=== PATIENT | female | born 1965 | race Caucasian/White ===

== ENCOUNTER 2017-08-16 18:45 | Emergency (ER) | payer OTHER ==
[~2017-08-16] VITALS: Ht 154.9 cm; Wt 68.0 kg
--- NOTE | 2017-08-16 19:49 | ED GENERAL ADULT ---
History of Present Illness General Chief Complaint: General Adult Stated Complaint: SIB WALK IN TACHYCARDIA 130'S Source: patient Exam Limitations: no limitations Vital Signs & Intake/Output Vital Signs & Intake/Output Vital Signs Date Time Temp Pulse Resp B/P B/P Pulse O2 O2 Flow FiO2 Mean Ox Delivery Rate 08/16 2315 98.5 94 18 144/88 98 Room Air Room Air 08/16 2037 108 08/16 1855 98.6 136 18 145/85 98 Room Air ED Intake and Output 08/17 0000 08/16 1200 Intake Total 2000 Output Total Balance 2000 Intake, IV 2000 Patient 150 lb Weight Weight Reported by Patient Measurement Method Allergies Coded Allergies: No Known Allergies (08/16/17) Reconcile Medications Albuterol Sulfate (Proair Hfa) 90 MCG HFA.AER.AD 2 PUF INH Q4-6 PRN PRN SOB COUGH Azithromycin (Zithromax) 250 MG TABLET 1 DP PO AD BRONCHITIS 2 the first day followed by 1 for days 2-5 Codeine Phosphate/Guaifenesi (Cheratussin AC Syrup) 10 MG-100 MG/5 ML LIQUID 10 ML PO Q6H PRN COUGH Triage Note: 51 YO FEMALE TO TRIAGE FROM URGENT CARE FOR EVAL OF ELEVATED HR. STATES SHE WENT THERE FOR EVAL OF PRODUCTIVE COUGH WITH BROWNISH SPUTUM. STATES THEY DID AN EKG AND HER HR WAS 130s. STATES HAS BEEN TAKING TUSSIN DM FOR HER COUGH. DENIES CHEST PAIN/SOB. EKG IN PROGRESS. Triage Nurses Notes Reviewed? yes Onset: Abrupt Duration: day(s): (3), changing over time, continues in ED, getting worse Timing: remote history Injury Environment: home Severity: mild, moderate No Modifying Factors: none Associated Symptoms: cough LMP (ages 10-50): unknown : No Patient currently breastfeeds: No HPI: 51-year-old female with no medical history presents for evaluation of cough, shortness breath and chest tightness. Patient reports symptoms have been going on for 3 days. She reports a history of bronchitis in the past FEELS this is similar. She states that her cough is productive of clear sputum. She also reports chest tightness in the center of her chest. She went to an urgent care and was sent here for further evaluation as her heart rate was elevated. She reports that she is a current every day smoker she smoked 2 cigarettes took cough medicine and drink a large, coughing for going to the urgent care. She also reports increasing anxiety and thinks this may be why her heart rate is elevated. She denies any chest pain hemoptysis lower extremity edema history of DVT/PE, fevers, nausea, vomiting, sweats, chills, abdominal pain or any other associated symptoms. (César Dsouza) Past History Travel History Traveled to [place] past 21 day No Medical History Any Pertinent Medical History? see below for history Neurological: NONE EENT: NONE Cardiovascular: NONE Respiratory: NONE Gastrointestinal: NONE Hepatic: NONE Renal: NONE Musculoskeletal: NONE Psychiatric: NONE Endocrine: NONE Blood Disorders: NONE Cancer(s): NONE ZIGZAG APPLIQUER/Reproductive: NONE Surgical History Surgical History: non-contributory Psychosocial History What is your primary language Yoruba Tobacco Use: Current Daily Use Daily Tobacco Use Amount/Type: => 5 Cigarettes daily Family History Hx Contributory? No (César Dsouza) Review of Systems Review of Systems Constitutional: Reports: no symptoms. EENTM: Reports: no symptoms. Respiratory: Reports: see HPI, cough, short of breath. Cardiovascular: Reports: see HPI (CHEST TIGHTNESS). GI: Reports: no symptoms. Genitourinary: Reports: no symptoms. Musculoskeletal: Reports: no symptoms. Skin: Reports: no symptoms. Neurological/Psychological: Reports: no symptoms. Hematologic/Endocrine: Reports: no symptoms. Immunologic/Allergic: Reports: no symptoms. All Other Systems: Reviewed and Negative (César Dsouza) Physical Exam Physical Exam General Appearance: well developed/nourished, no apparent distress, alert, awake Head: atraumatic, normal appearance Eyes: Bilateral: normal appearance, PERRL, EOMI. Ears, Nose, Throat: normal pharynx, normal ENT inspection, hearing grossly normal Neck: normal inspection, supple, full range of motion Respiratory: normal breath sounds, chest non-tender, no respiratory distress, lungs clear Cardiovascular: regular rate/rhythm, normal peripheral pulses Peripheral Pulses: 2+ radial (R), 2+ radial (L) Gastrointestinal: normal bowel sounds, soft, non-tender, no organomegaly Back: normal inspection, normal range of motion Extremities: normal inspection, normal range of motion, no edema Neurologic/Psych: no motor/sensory deficits, awake, alert, oriented x 3, normal gait, normal mood/affect Skin: intact, normal color, warm/dry Lymphatic: no anterior cervical bennett Core Measures ACS in differential dx? No CVA/TIA Diagnosis: No Sepsis Present: No Sepsis Focused Exam Completed? No (Ryne CARBAJAL,César) Progress Differential Diagnoses I considered the following diagnoses in my evaluation of the patient: [Acute bronchitis, asthma exacerbation, COPD exacerbation, acute coronary syndrome, PE, arrhythmia, electrolyte abnormality, medication side effects] Plan of Care: Orders Procedure Date/time Status TROPONIN LEVEL 08/17 2243 Complete EKG 08/17 2243 Active Telemetry/Athlete Marketing Agent 08/16 1938 Active Add-on Test (ER Only) 08/16 1910 Active URINE DRUG SCREEN FOR ER ONLY 08/16 1910 Complete TSH REFLEX 08/17 1907 Complete TROPONIN LEVEL 08/17 1907 Complete MAGNESIUM 08/17 1907 Complete D-DIMER 08/17 1907 Complete COMPREHENSIVE METABOLIC PANEL 08/17 1907 Complete CBC WITHOUT DIFFERENTIAL 08/17 1907 Complete EKG 08/16 1847 Active Laboratory Tests 08/16/17 2303: Troponin I < 0.01 08/16/172024: Urine Opiates Screen < 100, Methadone Screen < 40, Barbiturate Screen < 60, Ur Phencyclidine Scrn < 6.00, Amphetamines Screen < 100, U Benzodiazepines Scrn < 85, Urine Cocaine Screen < 50, Urine Cannabis Screen < 5.00 08/16/171945: Anion Gap 14, Estimated GFR > 60, BUN/Creatinine Ratio 13.3, Glucose 157 H, Calcium 10.4 H, Magnesium 1.9, Total Bilirubin 0.3, AST 17, ALT 21, Alkaline Phosphatase 61, Troponin I < 0.01, Total Protein 7.6, Albumin 4.5, Globulin 3.1, Albumin/Globulin Ratio 1.5, TSH &T3 &Free T4 Intrp 1.630, D-Dimer High Sensitivty 288 H, CBC w Diff NO MAN DIFF REQ, RBC 4.84, MCV 87.4, MCH 28.7, MCHC 32.8 L, RDW 13.6, MPV 8.5, Gran % 84.4 H, Lymphocytes % 11.4 L, Monocytes % 4.0, Eosinophils % 0.1, Basophils % 0.1, Absolute Granulocytes 7.6 H, Absolute Lymphocytes 1.0 L, Absolute Monocytes 0.4, Absolute Eosinophils 0, Absolute Basophils 0 Patient seen and evaluated. She reports cough shortness of breath and chest tightness for the past 3 days. She reports a history of similar symptoms in the past. She is a current every day smoker. On initial evaluation she is tachycardic to the 120s 130s. IV fluids ordered patient placed on telemetry labs EKG chest x-ray ordered. Blood work shows a mildly elevated d-dimer of 288 patient continues to have tachycardia in the 1 teens. A CTA will be ordered. Initial chest x-ray is clear. EKG shows sinus tachycardia. Initial troponin is negative for any blood work is negative. CTA is negative. Patient reports feeling much better. Her heart rate is now the 80s. A repeat EKG troponin be obtained patient will then be treated for acute bronchitis. Repeat EKG troponin are negative and unchanged patient's heart rate remains normalized. Patient was given a prescription for Zithromax pro-air and Cheratussin. Advised to quit smoking. Discussed return precautions patient agrees the plan Diagnostic Imaging: Viewed by Me: Radiology Read, CT Scan. Discussed w/RAD: Radiology Read, CT Scan. Radiology Impression: PATIENT: ROSMERY TRUONG PRESENT AGE: 51 PATIENT ACCOUNT NO: [id number] : 67 LOCATION: [facility] ORDERING PHYSICIAN: César CARBAJAL SERVICE DATE: 08/16/17 EXAM TYPE: CAT - CTA CHEST-PULMONARY EMBOLISM EXAMINATION: CT ANGIOGRAM OF THE CHEST WITH AND WITHOUT CONTRAST (CT PULMONARY ANGIOGRAM FOR PE) CLINICAL INFORMATION: Pneumonia. PE. Shortness of breath. Cough. Tachycardia. COMPARISON: None TECHNIQUE: Prior to contrast administration, noncontrast localization images were obtained. Subsequently, multidetector volumetric imaging was performed from the thoracic inlet to below the diaphragms following the administration of 95 mL Optiray 320 intravenous contrast. No contrast reaction reported. Sagittal, coronal, and MIP oblique sagittal reformatted images were obtained on the CT workstation, uploaded to PACS, and reviewed. Total exam dose-length product 321 mGy-cm. FINDINGS: QUALITY OF STUDY/CONTRAST BOLUS: Satisfactory PULMONARY ARTERIES: No central or segmental pulmonary emboli. THORACIC AORTA: No aneurysm or dissection. LUNG: The central airways are patent. There is no focal consolidation or mass. No suspicious pulmonary nodules are seen. PLEURA: No pleural effusion or pneumothorax. MEDIASTINUM: Normal heart size. No pericardial effusion. No hilar or mediastinal lymphadenopathy. No evidence of septal bowing or right heart strain. CHEST WALL/AXILLA: No axillary or internal mammary lymphadenopathy. Bilateral breast implants are noted. OSSEOUS STRUCTURES: No acute or suspicious osseous abnormality. UPPER ABDOMEN: Cholecystectomy. Surgical clip noted in the anterior abdominal wall. No reflux of contrast into the hepatic veins to suggest elevated right heart pressures. IMPRESSION: - No central or segmental pulmonary embolism. - No consolidation or mass in the chest VTE: negative DICTATED BY: Karuna Somers MD DATE/TIME DICTATED:08/16/172225 INSURANCE COUNSELOR:DIANELYS DATE/TIME TRANSCRIBED:08/16/172225 CONFIDENTIAL, DO NOT COPY WITHOUT APPROPRIATE AUTHORIZATION. Initial ED EKG: normal QRS complex, SINUS TACHYCARDIA RATE 120S Repeat EKG: changed (SINUS RHYTHM) (César Dsouza) Departure Departure Disposition: HOME OR SELF CARE Condition: Stable Clinical Impression Primary Impression: Acute bronchitis Qualifiers: Bronchitis organism: unspecified organism Qualified Code: J20.9 - Acute bronchitis, unspecified Referrals: Meri Perry MD (PCP/Family) Additional Instructions: Take antibiotics as directed for the full course. Cheratussin as needed for cough. Albuterol inhaler as needed for cough or shortness of breath. Quit smoking. Follow-up with YOUr primary care doctor monitor symptoms return with any concerns. Departure Forms: Customer Survey General Discharge Information Prescriptions: Current Visit Scripts Azithromycin (Zithromax) 1 DP PO AD #6 TAB 2 the first day followed by 1 for days 2-5 Albuterol Sulfate (Proair Hfa) 2 PUF INH Q4-6 PRN PRN SOB COUGH #1 INHAL Codeine Phosphate/Guaifenesi (Cheratussin AC Syrup) 10 ML PO Q6H PRN COUGH #240 ML (César Dsouza) PA/[employer]TER Co-Sign Statement Statement: ED Attending supervision documentation- [] I saw and evaluated the patient. I have also reviewed all the pertinent lab results and diagnostic results. I agree with the findings and the plan of care as documented in the PA's/[employer] SETTER's documentation. [x] I have reviewed the ED Record and agree with the PA's/[employer]INE SETTER's documentation. [] Additions or exceptions (if any) to the PAs/[employer] M[employer]INE SETTER's note and plan are summarized below: [] (Alissa THOMAS,Lm Villegas) Critical Care Note Critical Care Note Critical Care Time: non-applicable (César Dsouza)
[2017-08-16 19:52] LABS: ABSOLUTE BASOPHIL COUNT 0 /CUMM (0.0-0.2); ABSOLUTE EOSINOPHIL COUNT 0 /CUMM (0.0-0.7); ABSOLUTE MONOCYTE COUNT 0.4 /CUMM (0.10-0.60); BASOPHIL % 0.1 % (0.0-2.0); EOSINOPHIL % 0.1 % (0-5); GRANULOCYTE % 84.4 % (42.2-75.2); HEMATOCRIT 42.2 % (37-47); MEAN CORPUSCULAR HGB 28.7 PG (27.0-31.0); MEAN CORPUSCULAR HGB CONC 32.8 G/DL (33.0-37.0); MEAN CORPUSCULAR VOLUME 87.4 FL (81.0-99.0); MEAN PLATELET VOLUME 8.5 FL (7.4-10.4); PLATELET COUNT 334 /CUMM (130-400); RBC DISTRIBUTION WIDTH 13.6 % (11.5-14.5); RED BLOOD CELL CT 4.84 /CUMM (4.20-5.40)
[2017-08-16 19:53] LABS: ABSOLUTE GRANULOCYTE CT 7.6 /CUMM (1.4-6.5)
--- NOTE | 2017-08-16 21:28 | RADIOLOGY REPORT ---
EXAMINATION: XR CHEST, 2 VIEWS CLINICAL INFORMATION: Chest pain COMPARISON: None. TECHNIQUE: PA and lateral views of the chest were obtained. FINDINGS: Lungs are clear. No consolidation, pneumothorax, or pleural effusion. Cardiac and mediastinal contours are normal. Pulmonary vasculature is unremarkable. Trachea is midline. Osseous structures are unremarkable. IMPRESSION: Normal chest radiographs.
--- NOTE | 2017-08-16 22:36 | CT SCAN REPORT ---
EXAMINATION: CT ANGIOGRAM OF THE CHEST WITH AND WITHOUT CONTRAST (CT PULMONARY ANGIOGRAM FOR PE) CLINICAL INFORMATION: Pneumonia. PE. Shortness of breath. Cough. Tachycardia. COMPARISON: None TECHNIQUE: Prior to contrast administration, noncontrast localization images were obtained. Subsequently, multidetector volumetric imaging was performed from the thoracic inlet to below the diaphragms following the administration of 95 mL Optiray 320 intravenous contrast. No contrast reaction reported. Sagittal, coronal, and MIP oblique sagittal reformatted images were obtained on the CT workstation, uploaded to PACS, and reviewed. Total exam dose-length product 321 mGy-cm. FINDINGS: QUALITY OF STUDY/CONTRAST BOLUS: Satisfactory PULMONARY ARTERIES: No central or segmental pulmonary emboli. THORACIC AORTA: No aneurysm or dissection. LUNG: The central airways are patent. There is no focal consolidation or mass. No suspicious pulmonary nodules are seen. PLEURA: No pleural effusion or pneumothorax. MEDIASTINUM: Normal heart size. No pericardial effusion. No hilar or mediastinal lymphadenopathy. No evidence of septal bowing or right heart strain. CHEST WALL/AXILLA: No axillary or internal mammary lymphadenopathy. Bilateral breast implants are noted. OSSEOUS STRUCTURES: No acute or suspicious osseous abnormality. UPPER ABDOMEN: Cholecystectomy. Surgical clip noted in the anterior abdominal wall. No reflux of contrast into the hepatic veins to suggest elevated right heart pressures. IMPRESSION: - No central or segmental pulmonary embolism. - No consolidation or mass in the chest VTE: negative
[2017-08-16 23:15] VITALS: BP 144/88
[2017-08-16] MEDS ORDERED: PROAIR HFA8.5 GM INH (23:40)
[2017-08-16] MEDS ORDERED: ZITHROMAX250 M2 PO (23:40)
[2017-08-16] MEDS ORDERED: CHERATUSSIN AC118 M1 PO (23:40)
== END 2017-08-17 00:11 ==
LOC: ERH 18:45
PROVIDERS: Physician Assistant Medical
DX: J20.9 Acute bronchitis, unspecified (principal); F17.210 Nicotine dependence, cigarettes, uncomplicated
CPT/HCPCS: 71046; 80307; 93005; 93010